=== PATIENT | male | born 1985 | race Hispanic/Latino ===

== ENCOUNTER 2017-05-26 11:30 | Inpatient (IN) | payer OTHER ==
[~2017-05-26] VITALS: Ht 172.7 cm; Wt 146.7 kg
[2017-05-26] MEDS ORDERED: SODIUM CHLORIDE 0.9% 1000ML 1,000 ML IV STA ×2 (11:42→13:24)
[2017-05-26 12:36] LABS: BASOPHILS % 0.2 % (0.0-1.0); EOSINOPHILS % 0.3 % (0.0-6.0); HEMOGLOBIN 15.8 g/dL (14.0-18.0); LYMPHOCYTES # (AUTO) 2.1 (1.0-3.2); LYMPHOCYTES % 18.6 % (18.0-39.1); MEAN CORPUSCULAR HEMOGLOBIN 30.1 pg (28-32); MEAN CORPUSCULAR HGB CONC 36.7 g/dL (31-35); MEAN CORPUSCULAR VOLUME 81.9 fL (81-99); MONOCYTES # (AUTO) 0.5 (0.2-0.8); MONOCYTES % 3.9 % (4.4-11.3); NEUTROPHILS # (AUTO) 8.7 (2.1-6.9); NEUTROPHILS % 76.6 % (38.7-80.0); PLATELET COUNT 359 x10e3/uL (140-360); RED BLOOD COUNT 5.25 x10e6/uL (4.3-5.7); RED CELL DISTRIBUTION WIDTH 12.3 % (11.7-14.4)
[2017-05-26 13:18] LABS: ALANINE AMINOTRANSFERASE 34 IU/L (0-55); ALBUMIN/GLOBULIN RATIO 0.8 (0.8-2.0); ALKALINE PHOSPHATASE 97 IU/L (40-150); ANION GAP 21.9 mmol/L (8-16); BLOOD UREA NITROGEN 17 mg/dL (7-26); BUN/CREATININE RATIO 13 (6-25); CALCIUM 9.2 mg/dL (8.4-10.2); CARBON DIOXIDE 18 mmol/L (22-29); CHLORIDE 94 mmol/L (98-107); CREATININE, SERUM 1.33 mg/dL (0.72-1.25); EST GLOMERULAR FILTRATION RATE > 60 ML/MIN (60-); MAGNESIUM 1.7 MG/DL (1.3-2.1); POTASSIUM 3.9 mmol/L (3.5-5.1); SODIUM 130 mmol/L (136-145)
[2017-05-26 13:22] LABS: GLUCOSE 445 mg/dL (74-118)
[2017-05-26] MEDS ORDERED: INSULIN REGULAR, HUMAN 100 UNIT/1 ML 3ML VIAL IV ONE (13:30)
[2017-05-26] MEDS ORDERED: SODIUM CHLORIDE 0.9% 1000ML 1,000 ML IV SCH (13:30)
[2017-05-26] MEDS ORDERED: SODIUM CHLORIDE FLUSH 10 ML SYR INJ PRN (14:30)
[2017-05-26] MEDS ORDERED: ONDANSETRON HCL INJ 2 MG/ML VIAL IV PRN ×2 (14:30→17:30)
[2017-05-26] MEDS ORDERED: DEXTROSE 50% SYRINGE 50 ML IV PRN ×2 (14:30→15:45)
[2017-05-26] MEDS: SODIUM CHLORIDE 0.9% 1000ML 1,000 ML IV SCH ×2 (14:43→23:28)
[2017-05-26 14:59] LABS: ABG HCO3 21 mmol/L (23-28); ABG PCO2 36 mmHg (41-51); ABG PH 7.38 (7.31-7.41); ABG PO2 90 mmHg (80-105)
[2017-05-26 16:27] VITALS: BP 133/72
[2017-05-26 17:06] VITALS: BP 133/72
[2017-05-26 17:12] VITALS: BP 133/72
[2017-05-26] MEDS ORDERED: ACETAMINOPHEN 325 MG TAB PO PRN (17:30)
[2017-05-26] MEDS: INSULIN REGULAR, HUMAN 100 UNIT/1 ML 3ML VIAL SQ SCH ×2 (17:30→20:59)
[2017-05-26] MEDS: METFORMIN HCL 500 MG TAB PO SCH (18:11)
[2017-05-26 20:00] VITALS: BP 122/55
[2017-05-26 23:30] VITALS: BP 122/55
[2017-05-26 23:53] VITALS: BP 111/55
[2017-05-27 03:50] VITALS: BP 116/59
[2017-05-27 07:12] LABS: BASOPHILS % 0.3 % (0.0-1.0); EOSINOPHILS # (AUTO) 0.3 (0.0-0.4); EOSINOPHILS % 3.4 % (0.0-6.0); HEMATOCRIT 39.6 % (38.2-49.6); HEMOGLOBIN 13.9 g/dL (14.0-18.0); LYMPHOCYTES # (AUTO) 2.3 (1.0-3.2); LYMPHOCYTES % 30.1 % (18.0-39.1); MEAN CORPUSCULAR HEMOGLOBIN 29.5 pg (28-32); MEAN CORPUSCULAR HGB CONC 35.1 g/dL (31-35); MEAN CORPUSCULAR VOLUME 84.1 fL (81-99); MONOCYTES # (AUTO) 0.5 (0.2-0.8); MONOCYTES % 6.5 % (4.4-11.3); NEUTROPHILS # (AUTO) 4.6 (2.1-6.9); NEUTROPHILS % 59.3 % (38.7-80.0); PLATELET COUNT 303 x10e3/uL (140-360); RED BLOOD COUNT 4.71 x10e6/uL (4.3-5.7); RED CELL DISTRIBUTION WIDTH 12.7 % (11.7-14.4)
[2017-05-27] MEDS: INSULIN REGULAR, HUMAN 100 UNIT/1 ML 3ML VIAL SQ SCH (07:30)
[2017-05-27 07:33] VITALS: BP 94/61
[2017-05-27 07:33] LABS: ANION GAP 12.7 mmol/L (8-16); BLOOD UREA NITROGEN 14 mg/dL (7-26); BUN/CREATININE RATIO 16 (6-25); CALCIUM 8.2 mg/dL (8.4-10.2); CARBON DIOXIDE 23 mmol/L (22-29); CHLORIDE 103 mmol/L (98-107); CHOL/HDL RATIO 6.5 (3.9-4.7); CHOLESTEROL 137 MD/DL (0-199); CREATININE, SERUM 0.89 mg/dL (0.72-1.25); EST GLOMERULAR FILTRATION RATE > 60 ML/MIN (60-); GLUCOSE 292 mg/dL (74-118); HDL CHOLESTEROL 21 MG/DL (40-60); MAGNESIUM 1.8 MG/DL (1.3-2.1); PHOSPHORUS 2.6 MG/DL (2.3-4.7); POTASSIUM 3.7 mmol/L (3.5-5.1); SODIUM 135 mmol/L (136-145); TRIGLYCERIDES 428 MG/DL (0-149)
[2017-05-27] MEDS: METFORMIN HCL 500 MG TAB PO SCH (08:00)
[2017-05-27] MEDS: SODIUM CHLORIDE 0.9% 1000ML 1,000 ML IV SCH (09:54)
--- NOTE | 2017-05-27 11:06 | Discharge Summary ---
PRIMARY DOCTOR: Dr. Chidi Perez FINAL DIAGNOSIS: Newly diagnosed diabetes. SECONDARY DIAGNOSES 1. History of hyponatremia, resolved. 2. Morbid obesity. Weight loss advised. 3. Mild metabolic acidosis, resolved. 4. Hypertriglyceridemia. CONSULTANTS: None. PROCEDURES/STUDIES PERFORMED: None. HISTORY: Per [facility] HOSPITAL COURSE: The patient was admitted with newly diagnosed diabetes. The patient was aggressively hydrated. Metformin 500 mg was started. The patient tolerated it well. No GI side effects. Initial blood sugar was 445. At the time of discharge, it was 274. The patient will go home on metformin 1000 mg b.i.d. His hemoglobin A1c was 10.9. The patient was also found to have a triglyceride of 428. I informed the patient about this as well. The patient will follow up with his new primary care doctor in 3 days. His TSH was normal. CONDITION ON DISCHARGE: Stable. DISCHARGE MEDICATIONS: Please see medication reconciliation form. FLETCHER KEENAN M.D. Job#: [id number] CO cc: CHIDI PEREZ MD
== END 2017-05-27 11:10 | disposition home or self-care (01) | DRG 638 ==
LOC: ER 11:30 → ERHOLD 15:51 → MED/SURG3 15:52
PROVIDERS: ADMIT Internal Medicine; ATTEND Internal Medicine
DX: E11.65 Type 2 diabetes mellitus with hyperglycemia (principal); E87.1 Hypo-osmolality and hyponatremia; E87.2 Acidosis; Z68.42 Body mass index [BMI] 45.0-49.9, adult; E66.01 Morbid (severe) obesity due to excess calories; E78.1 Pure hyperglyceridemia
CPT/HCPCS: 36415; 36600; 80048; 80053; 80061; 82805; 82948; 83036; 83735; 84100; 84443; 85025; 99284; J7030